=== PATIENT | male | born 1980 | race Caucasian/White ===

== ENCOUNTER 2019-07-07 19:25 | Emergency (ER) | payer MEDICARE, OTHER ==
[2019-07-07 19:47] VITALS: TEMP 98.7
--- NOTE | 2019-07-07 21:12 | ED ---
General Adult HPI - General Chief complaint: Extremity Injury, Lower Stated complaint: Leg pain Time Seen by Provider: 07/07/19 20:04 Source: patient Mode of arrival: ambulatory Limitations: no limitations - History of Present Illness Initial comments: Patient presents the ED with his for evaluation. Patient states that he has had posterior left calf pain for the past couple of days. Patient denies any known trauma or injury, but he states he has been driving a lot recently. Patient denies calf or leg redness, calf or leg swelling, fever, chest pain, dyspnea, dizziness, focal neuro deficit, or any other symptoms or complaints. - Related Data Previous Rx's Medication Instructions Recorded Apixaban [Eliquis Starter Pack 0 mg PO DIRECTED 30 Days #1 pack 07/07/19 (for VTE)] Allergies Allergy/AdvReac Type Severity Reaction Status Date / Time acetaminophen Allergy Rash/Hives Verified 07/07/19 19:47 [From Darvocet-N] morphine Allergy Rash/Hives Verified 07/07/19 19:47 propoxyphene Allergy Rash/Hives Verified 07/07/19 19:47 [From Darvocet-N] Review of Systems ROS Statement: Those systems with pertinent positive or pertinent negative responses have been documented in the HPI. ROS Other: All systems not noted in ROS Statement are negative. Past Medical History Past Medical History: No Reported History Additional Past Medical History / Comment(s): seasonal allergies History of Any Multi-Drug Resistant Organisms: None Reported Past Surgical History: Ear Surgery Additional Past Surgical History / Comment(s): sinus Past Psychological History: Anxiety, Bipolar Smoking Status: Never smoker Past Alcohol Use History: Occasional Past Drug Use History: None Reported General Exam Limitations: no limitations General appearance: alert, in no apparent distress Head exam: Present: atraumatic, normocephalic Eye exam: Present: normal appearance, EOMI ENT exam: Present: mucous membranes moist Neck exam: Present: other (Trachea is in midline) Respiratory exam: Present: normal lung sounds bilaterally. Absent: respiratory distress, wheezes, rales, rhonchi Cardiovascular Exam: Present: regular rate, normal rhythm, normal heart sounds, other (Normal left dorsalis pedis pulse) Extremities exam: Present: other (Left calf tenderness with palpation; no left lower extremity swelling or erythema is appreciated; patient has full range of motion 5/5 strength at left ankle). Absent: pedal edema Back exam: Present: normal inspection. Absent: tenderness Neurological exam: Present: alert, oriented X3. Absent: motor sensory deficit Psychiatric exam: Present: normal affect, normal mood Skin exam: Present: warm, dry, intact, normal color Course Vital Signs 07/07/19 19:43 Temperature 98.7 F Pulse Rate 69 Respiratory 20 Rate Blood Pressure 124/80 O2 Sat by Pulse 99 Oximetry Medical Decision Making - Medical Decision Making Patient denies having any chest pain or dyspnea and he has been breathing comfortably with a normal room air oxygen saturation in the ED. Patient is aware of his diagnosis of left lower extremity DVT, and he feels comfortable going home with his at this time. Patient was given a dose of Eliquis in the ED prior to discharge, and he was instructed to, and agrees to, fill the 30 day course of Eliquis (free trial coupon was provided) that was prescribed to him tomorrow morning and start taking it as prescribed. Patient states that he has a primary care provider where he resides, which is about 2 hours from here, and he agrees to follow up closely with his primary care provider. Patient was counseled about DVTs, and he was clearly explained return and follow-up instructions. Patient was instructed to return to the ED should he develop new or worsening pain or swelling, chest pain, dyspnea, dizziness, or new or worsening symptoms. Patient feels comfortable with this plan. - Lab Data Result diagrams: 07/07/19 21:01 Lab Results 07/07/19 07/07/19 07/07/19 Range/Units 21:01 21:01 21:01 WBC 6.5 (3.8-10.6) k/uL RBC 5.19 (4.30-5.90) m/uL Hgb 14.9 (13.0-17.5) gm/dL Hct 44.5 (39.0-53.0) % MCV 85.9 (80.0-100.0) fL MCH 28.7 (25.0-35.0) pg MCHC 33.4 (31.0-37.0) g/dL RDW 12.8 (11.5-15.5) % Plt Count 211 (150-450) k/uL Neutrophils % 59 % Lymphocytes % 28 % Monocytes % 6 % Eosinophils % 4 % Basophils % 1 % Neutrophils # 3.8 (1.3-7.7) k/uL Lymphocytes # 1.8 (1.0-4.8) k/uL Monocytes # 0.4 (0-1.0) k/uL Eosinophils # 0.3 (0-0.7) k/uL Basophils # 0.1 (0-0.2) k/uL PT 10.0 (9.0-12.0) sec INR 0.9 (<1.2) APTT 23.3 (22.0-30.0) sec Creatine Kinase 125 (55-170) U/L - Radiology Data Radiology results: report reviewed (Left lower extremity venous duplex ultra sound shows a DVT in posterior tibial vein) Disposition Clinical Impression: Deep vein thrombosis of left lower extremity Disposition: HOME SELF-CARE Condition: Stable Instructions (If sedation given, give patient instructions): Deep Vein Thrombosis (ED) Additional Instructions: Return to the ER immediately should you develop new or worsening pain or sw elling, chest pain, shortness of breath, feeling dizzy or faint, or new or worsening symptoms. Follow up closely with your primary care provider. Prescriptions: Apixaban [Eliquis Starter Pack (for VTE)] 0 mg PO DIRECTED 30 Days #1 pack Is patient prescribed a controlled substance at d/c from ED?: No Referrals: Nonstaff,Physician [Primary Care Provider] - 1-2 days Time of Disposition: 22:22
[2019-07-07 21:13] LABS: Basophils # (A) 0.1 k/uL (0-0.2); Basophils % (A) 1 %; Eosinophils # (A) 0.3 k/uL (0-0.7); Eosinophils % (A) 4 %; HCT 44.5 % (39.0-53.0); HGB 14.9 gm/dL (13.0-17.5); Lymphocytes # (A) 1.8 k/uL (1.0-4.8); Lymphocytes % (A) 28 %; MCH 28.7 pg (25.0-35.0); MCHC 33.4 g/dL (31.0-37.0); MCV 85.9 fL (80.0-100.0); Mean Platelet Volume 7.7; Monocytes # (A) 0.4 k/uL (0-1.0); Monocytes % (A) 6 %; Neutrophils # (A) 3.8 k/uL (1.3-7.7); Neutrophils % (A) 59 %; Platelet Count 211 k/uL (150-450); RBC 5.19 m/uL (4.30-5.90); RDW 12.8 % (11.5-15.5); WBC 6.5 k/uL (3.8-10.6)
[2019-07-07 21:23] LABS: INR 0.9 (<1.2)
[2019-07-07 21:24] LABS: Partial Thromboplastin Time 23.3 sec (22.0-30.0)
--- NOTE | 2019-07-07 22:01 | US ---
EXAMINATION TYPE: US venous doppler duplex LE LT DATE OF EXAM: 07/07/2019 9:46 PM COMPARISON: NONE CLINICAL HISTORY: left calf pain. Left leg pain x 2 days. No hx of DVT. Patient is not taking blood t hinners. SIDE PERFORMED: Left TECHNIQUE: The lower extremity deep venous system is examined utilizing real time linear array sonog trace with graded compression, doppler sonography and color-flow sonography. VESSELS IMAGED: External Iliac Vein (EIV) Common Femoral Vein Deep Femoral Vein Greater Saphenous Vein * Femoral Vein Popliteal Vein Small Saphenous Vein * Proximal Calf Veins (* superficial vessels) Left Leg: There appears to be a noncompressible complex area left posterior mid calf. This appears t o be thrombus and is at the patient's area of pain. No evidence of DVT in the remaining veins imaged. IMPRESSION: There is evidence for acute deep venous thrombosis in the posterior tibial vein which is a deep vein.
[2019-07-07] MEDS ORDERED: APIXABAN 5 MG TAB PO STA (22:15)
[2019-07-07 22:28] VITALS: BP 124/76; PULSE 73; RESP 18
== END 2019-07-07 22:38 | disposition home or self-care (01) ==
LOC: EC 19:25
DX: I82.442 Acute embolism and thrombosis of left tibial vein (principal); Z88.5 Allergy status to narcotic agent; Z88.6 Allergy status to analgesic agent
CPT/HCPCS: 36415; 82550; 85025; 85610; 85730; 99284